=== PATIENT | male | born 1945 | race Caucasian/White ===

== ENCOUNTER 2019-01-20 14:24 | Outpatient (CLI) | payer MEDICARE, OTHER, SELFPAY ==
--- NOTE | 2019-01-20 15:28 | ECG_ITS ---
Measurements Intervals [place] Rate: 67 P: 59 VT: 163 QRS: 68 QRSD: 93 T: 65 QT: 363 QTc: 384 Interpretive Statements SINUS RHYTHM BASELINE ARTIFACT- I, II, AVR, AVL, AVF NORMAL ECG Electronically Signed On 01-20-2019 16:39:23 KEY FILER by Shady Ardon D.O.
[2019-01-20 16:08] LABS: Blood Urea Nitrogen 23 mg/dL (9-20); Carbon Dioxide 28 mmol/L (22-30); Chloride 105 mmol/L (98-107); Estimated Glomerular Filt Rate 54; Glucose 100 mg/dL (75-110); Potassium 4.2 mmol/L (3.4-5.0); Sodium 141 mmol/L (137-145)
[2019-01-20 16:09] LABS: Hemoglobin A1C 6.4 % (<5.7)
== END 2019-01-20 14:25 | disposition home or self-care (01) ==
LOC: ANHSURGERY 14:38
PROVIDERS: Anesthesiology; PCP Family Medicine; Visit Provider Urology
DX: Z01.818 Encounter for other preprocedural examination (principal); N52.9 Male erectile dysfunction, unspecified; I10 Essential (primary) hypertension
CPT/HCPCS: 36415; 80048; 83036; 87077; 87086; 87088; 87186; 93005